=== PATIENT | female | born 1975 | race Hispanic/Latino ===

== ENCOUNTER 2018-06-26 17:37 | Emergency (ER) | payer MEDICARE, OTHER ==
[~2018-06-26] VITALS: Ht 154.9 cm; Wt 99.8 kg
[~2018-06-26 17:37] MED LIST: ADDERALL 20 MG20 MG PO; AMBIEN10 MG PO; CELEXA20 MG PO; DOXEPIN PO; FIORINAL 50-321 EACH PO; GABAPENTIN300 MG PO; LEVOTHYROXINE50 MCG PO; MS CONTIN15 MG PO; NORVASC10 MG PO; PLAQUENIL200 MG PO; SEROQUEL25 MG PO; SUCRALFATE1 GM PO; XANAX1 MG PO; Z.0.KLONOPIN1 MG PO; Z.0.TRILEPTAL300 MG PO; Z.0.WELLBUTRIN XL300 PO; xeljanz PO
--- OUTSIDE RECORDS SUMMARY | 2018-06-26 17:40 | XMS REPORT ---
[facility] Address Unknown Phone Unavailable Care Team Providers Care Casting Wheel Operator Name Role Phone Unavailable Unavailable Payers Payer Name Policy Type Policy Number Effective Date Expiration Date Problems This patient has no known problems. Allergies, Adverse Reactions, Alerts Allergy Name Allergy Type Status Severity Reaction(s) Onset Date Inactive Date Treating Clinician Comments Cephalexin Monohydrate DA Active U 2018-04-06 00:00:00 Penicillins DA Active U 2018-04-06 00:00:00 codeine DA Active U 2018-04-06 00:00:00 Cephalexin Monohydrate DA Active U 2018-03-08 00:00:00 Penicillins DA Active U 2018-03-08 00:00:00 codeine DA Active U 2018-03-08 00:00:00 codeine DA Active U 2017-11-01 00:00:00 Cephalexin Monohydrate DA Active U 2017-10-21 00:00:00 Penicillins DA Active U 2017-10-21 00:00:00 Medications This patient has no known medications. Encounters Start Date/Time End Date/Time Encounter Type Admission Type Attending [facility] Facility Care Department Encounter ID 2017-12-11 05:03:00 Inpatient [facility] [id number] 2018-01-10 00:00:00 2018-01-10 00:00:00 Outpatient [facility] [id number] 2017-12-15 15:49:59 2017-12-15 15:49:59 Outpatient [facility] [id number] 2017-12-09 01:56:06 2017-12-09 01:56:06 Emergency [facility] [id number]
--- OUTSIDE RECORDS SUMMARY | 2018-06-26 17:40 | XMS REPORT | Clinical Summary ---
Author Author [facility] Organization [facility] Address Unknown Phone Unavailable Care Team Providers Care Outdoor Adventure Guides Name Role Phone PCP Unavailable Allergies Comments Active Allergy Reactions Severity Noted Date Codeine Hives, 04/05/2006 Itching, Swelling Cephalexin Monohydrate Hives, 04/05/2006 Itching, Swelling Penicillins 04/05/2006 Medications End Date Status Medication Sig Dispensed Refills Start Date Active ARIPiprazole (ABILIFY) 10 Take 1 tablet 30 tablet 0 mg tabletIndications: by mouth 8 Psychosis, unspecified every psychosis type morning. Active levothyroxine (SYNTHROID) Take 1 tablet 30 tablet 0 25 mcg tabletIndications: by mouth 8 Hypothyroidism, every morning unspecified type (before breakfast). 12/15/2017 Discontinued CIPROFLOXACIN 500 MG take 1 tablet 14 0 TABIndications: UTI (500 mg) by 8 (urinary tract infection) oral route every 12 hours Active Problems Problem Noted Date Pain in joint, ankle and foot 11/26/2007 Bipolar 2 disorder 05/12/2006 Chronic rhinitis 04/05/2006 Depression 04/05/2006 Mood disorder Psychosis Benzodiazepine abuse Opiate abuse, continuous Hypothyroidism Substance-induced disorder Encounters Care Team Description Date Type Specialty Yoko Mckeon 12/15/2017 Hospital Encounter Alona Malhotra MD Hypothyroidism, unspecified type (Primary Dx); Undifferentiated schizophrenia; Psychosis, unspecified psychosis type 12/11/2017 Hospital Psychiatry - Encounter 12/15/2017 Fozia Daigle MD Undifferentiated schizophrenia (Primary Dx); Mood disorder; Psychosis, unspecified psychosis type; Benzodiazepine abuse; Opiate abuse, continuous; Hypothyroidism, unspecified type; Substance-induced disorder 12/09/2017 Emergency Emergency Medicine - 12/11/2017 after 06/25/2017 Family History Medical History Relation Name Comments Diabetes Brother Cancer Father Hypertension Father Diabetes Maternal Grandmother Hypertension Maternal Grandmother Psychiatry Maternal Grandmother Cancer Mother Arthritis Paternal Grandmother Relation Name Status Comments Brother Father Alive Maternal Grandmother Mother Alive Paternal Grandmother Social History Date Tobacco Use Types Packs/Day Years Used Never Smoker Smokeless Tobacco: Never Used Tobacco Cessation: Counseling Given: No Alcohol Use Drinks/Week oz/Week Comments No former ETOH abuse Sex Assigned at Date Recorded Not on file Industry Job Start Date Occupation Not on file Not on file Not on file Travel End Travel History Travel Start No recent travel history available. Last Filed Vital Signs Time Taken Vital Sign Reading 12/15/2017 3:00 PM CDT Blood Pressure 118/82 12/15/2017 3:00 PM CDT Pulse 98 12/15/2017 3:00 PM CDT Temperature 36.7 C (98 F) 12/15/2017 3:00 PM CDT Respiratory Rate 18 12/08/2017 11:37 PM CDT Oxygen Saturation 97% - Inhaled Oxygen - Concentration 12/11/2017 5:10 AM CDT Weight 66.7 kg (147 lb) 12/11/2017 5:10 AM CDT Height 152.4 cm (5') 12/11/2017 5:10 AM CDT Body Mass Index 28.71 Plan of Treatment Health Maintenance Due Date Last Done Comments Cervical Cancer Scrn (3 1994 Yrs) Breast Cancer Scrn 2013 (Yearly) IMM Influenza Seasonal 03/26/2018Mar to August (>/=19 yrs) Procedures Comments Procedure Name Priority Date/Time Associated Diagnosis FOLIC ACID Routine 12/12/2017 6:00 AM CDT VITAMIN B12 Routine 12/12/2017 6:00 AM CDT URINE DRUG SCREEN Routine 12/11/2017 9:58 PM CDT CONSULT CLINICAL CASE STAT 12/10/2017 MANAGEMENT (RN/SW) 12:36 PM CDT CONSULT CLINICAL CASE STAT 12/10/2017 MANAGEMENT (RN/SW) 8:16 AM CDT VITAMIN B12 STAT 12/09/2017 8:08 AM CDT TSH STAT 12/09/2017 8:08 AM CDT FOLIC ACID STAT 12/09/2017 8:08 AM CDT COMPREHENSIVE METABOLIC STAT 12/09/2017 PANEL(DBIL NOT INCLUDED) 8:08 AM CDT CBC/DIFF STAT 12/09/2017 8:08 AM CDT after 06/25/2017 Results * FOLIC ACID (12/12/2017 6:00 AM CDT) Only the most recent of 2 results within the time period is included. Folic Acid 14.3 5.9 - 24.8 ng/mL BT MAIN-STATION 1 Specimen Blood Performing Organization Address [facility] Phone Number [facility] * VITAMIN B12 (12/12/2017 6:00 AM CDT) Only the most recent of 2 results within the time period is included. Vitamin B12 607 211 - 911 pg/mL BT MAIN-STATION 1 Specimen Blood Performing Organization Address [facility] Phone Number [facility] * URINE DRUG SCREEN (12/11/2017 9:58 PM CDT) Amphetamine Negative NEG BT MAIN-STATION Comment: 1 Calibrated Standard: D-Methamphetamine Positive if urine level >kp=8366 ng/mL Test performed on [id number] using EMIT Immunoassay Barbiturate Negative NEG BT MAIN-STATION Comment: 1 Calibrated Standard: Secobarbital Positive if urine level is >qd=629 ng/mL Test performed on [id number] using EMIT Immunoassay Benzodiazepine Negative NEG BT MAIN-STATION Comment: 1 Calibrated Standard: Lormethazepam Positive if urine level is >im=180 ng/mL Test performed on [id number] using EMIT Immunoassay Cannabinoid Negative NEG BT MAIN-STATION Comment: 1 Calibrated Standard: 11 nor-delta(9)-THC carboxylic a Positive if urine level >or=50 Test performed on [id number] using EMIT Immunoassay Cocaine Negative NEG BT MAIN-STATION Comment: 1 Calibrated Standard: Benzoylecgonine Positive if urine level >hl=612 Test performed on [id number] using EMIT Immunoassay Opiate, Ur Positive (A) NEG BT MAIN-STATION Comment: 1 Calibrated Standard: Morphine Positive if urine level >xi=487 Test performed on [id number] using EMIT Immunoassay PCP Negative NEG BT MAIN-STATION Comment: 1 Calibrated Standard: Phencyclidine Positive if urine level >or=25 Test performed on [id number] using EMIT Immunoassay Urine Toxicology Screen results are to be used only for Medical purposes. Specimen Urine Performing Organization Address [facility] Phone Number [facility] BT MAIN-STATION 1 * COMPREHENSIVE METABOLIC PANEL(DBIL NOT INCLUDED) (12/09/2017 8:08 AM CDT) Albumin 4.3 3.7 - 5.3 g/dL BT MAIN-STATION 1 Calcium 9.0 8.6 - 10.3 mg/dL BT MAIN-STATION 1 CO2 29 21 - 31 mmol/L BT MAIN-STATION 1 Chloride 102 98 - 107 mmol/L BT MAIN-STATION 1 Creatinine 0.60 0.6 - 1.2 mg/dL BT MAIN-STATION 1 Glucose 77 70 - 110 mg/dL BT MAIN-STATION 1 Alk Phos 61 34 - 104 U/L BT MAIN-STATION 1 Potassium 4.0 3.5 - 5.1 mmol/L BT MAIN-STATION 1 Sodium 137 136 - 145 mmol/L BT MAIN-STATION 1 ALT 20 7 - 52 U/L BT MAIN-STATION 1 AST 26 13 - 39 U/L BT MAIN-STATION 1 Urea Nitrogen 14 7 - 25 mg/dL BT MAIN-STATION 1 T Bilirubin 0.5 0.2 - 1.2 mg/dL BT MAIN-STATION 1 T Protein 7.2 6.0 - 8.3 g/dL BT MAIN-STATION 1 GFR, Estimated >60 mL/min/1.73 m2 BT MAIN-STATION 1 GFR, Estim, >60 mL/min/1.73 m2 BT MAIN-STATION Afr-Am 1 Anion Gap 6 BT MAIN-STATION 1 Specimen Blood Performing Organization Address [facility] Phone Number [facility] BT MAIN-STATION 1 * TSH (12/09/2017 8:08 AM CDT) TSH 0.49 (L) 0.57 - 3.74 uIU/mL BT MAIN-STATION 1 Specimen Blood Performing Organization Address [facility] Phone Number [facility] BT MAIN-STATION 1 * CBC/DIFF (12/09/2017 8:08 AM CDT) WBC 5.2 4.5 - 11.0 K/uL BT MAIN-STATION 2 RBC 3.90 (L) 4.20 - 5.40 M/uL BT MAIN-STATION 2 Hemoglobin 12.1 12.0 - 16.0 g/dL BT MAIN-STATION 2 Hematocrit 37.2 37.0 - 47.0 % BT MAIN-STATION 2 MCV 95 (H) 82 - 92 fL BT MAIN-STATION 2 MCH 31.0 27.0 - 32.0 pg BT MAIN-STATION 2 MCHC 32.5 32.0 - 36.0 g/dL BT MAIN-STATION 2 RDW 48.9 (H) 36.4 - 46.3 fL BT MAIN-STATION 2 Platelet 121 (L) 150 - 400 K/uL BT MAIN-STATION 2 Mean Platelet 10.9 9.4 - 12.4 fL BT MAIN-STATION Volume 2 Percent NRBC 0.0 BT MAIN-STATION 2 Absolute NRBC 0.00 BT MAIN-STATION 2 Neutrophil 64.1 34.0 - 70.0 % BT MAIN-STATION 2 Lymphocyte 27.0 20.0 - 50.0 % BT MAIN-STATION 2 Monocyte 5.8 5.0 - 12.0 % BT MAIN-STATION 2 Eosinophil 2.7 0.7 - 5.0 % BT MAIN-STATION 2 Basophil 0.2 0.1 - 1.2 % BT MAIN-STATION 2 Pct Immat Gran 0.2 0.0 - 0.5 BT MAIN-STATION 2 Neutrophil, Abs 3.30 1.56 - 6.13 K/uL BT MAIN-STATION 2 Lymphocyte, Abs 1.39 1.18 - 3.74 K/uL BT MAIN-STATION 2 Monocyte, Abs 0.30 0.24 - 0.36 K/uL BT MAIN-STATION 2 Eosinophil, Abs 0.14 0.04 - 0.36 K/uL BT MAIN-STATION 2 Basophil, Abs 0.01 0.01 - 0.08 K/uL BT MAIN-STATION 2 Absol Immat 0.01 0.00 - 0.03 K/uL BT MAIN-STATION Gran 2 Specimen Blood Performing Organization Address City/State/Zipcode Phone Number [facility] BT MAIN-STATION 2 after 06/25/2017 Insurance Type Payer Benefit Subscriber ID Effective Phone Address Plan / Dates Group [facility] xxxxxxxxx 2015- [phone] [address] MEDICARE Present [id number] [place] [address] [facility] xxxxxxxxx 2017- [phone] COMMUNITY Present [id number] [place] [address] [facility] xxxxxxxxx 2017- [phone] COMMUNITY Present [id number] PLAN [facility] [address] [facility] xxxxxxxxx 2017-P [phone] [address] MED[address]ARE BEHAVIOR resent [id number] [place], [place] CHOICE [address] Advance Directives For more information, please contact: [address] [address] Date Inactivated Comments Code Status Date Activated 12/15/2017 8:37 PM Full Code 12/11/2017 5:30 AM
[2018-06-26] MEDS ORDERED: SODIUM CHLORIDE 0.9% 1000ML 1,000 ML IV STA (20:14)
== END 2018-06-26 21:00 | disposition left against medical advice (07) ==
LOC: ER 17:37
DX: M54.9 Dorsalgia, unspecified (principal)

== ENCOUNTER 2018-06-30 12:40 | Emergency (ER) | payer MEDICARE ==
[~2018-06-30] VITALS: Ht 154.9 cm; Wt 81.6 kg
--- OUTSIDE RECORDS SUMMARY | 2018-06-30 12:42 | XMS REPORT | Clinical Summary ---
Author Author [facility] Organization [facility] Address Unknown Phone Unavailable Care Team Providers Care Manga Artist Name Role Phone PCP Unavailable Allergies Comments [...] 12/09/2017 Emergency Emergency Medicine - 12/11/2017 after 06/29/2017 Family History Medical History Relation Name Comments [...] CBC/DIFF STAT 12/09/2017 8:08 AM CDT after 06/29/2017 Results * FOLIC ACID (12/12/2017 6:00 AM CDT) Only the most recent of 2 results within the time period is included. Folic Acid 14.3 5.9 - 24.8 ng/mL BT MAIN-STATION 1 Specimen Blood Performing Organization Address [facility] Phone Number [facility] * VITAMIN B12 (12/12/2017 6:00 AM CDT) Only the most recent of 2 results within the time period is included. Vitamin B12 607 211 - 911 pg/mL BT MAIN-STATION 1 Specimen Blood Performing Organization Address [facility] Phone Number [facility] * URINE DRUG SCREEN (12/11/2017 9:58 PM CDT) Amphetamine Negative NEG BT MAIN-STATION Comment: 1 Calibrated Standard: D-Methamphetamine Positive if urine level >is=6359 ng/mL Test performed on [id number] using EMIT Immunoassay Barbiturate Negative NEG BT MAIN-STATION Comment: 1 Calibrated Standard: Secobarbital Positive if urine level is >jj=950 ng/mL Test performed on [id number] using EMIT Immunoassay Benzodiazepine Negative NEG BT MAIN-STATION Comment: 1 Calibrated Standard: Lormethazepam Positive if urine level is >dm=916 ng/mL Test performed on [id number] using EMIT Immunoassay Cannabinoid Negative NEG BT MAIN-STATION Comment: 1 Calibrated Standard: 11 nor-delta(9)-THC carboxylic a Positive if urine level >or=50 Test performed on [id number] using EMIT Immunoassay Cocaine Negative NEG BT MAIN-STATION Comment: 1 Calibrated Standard: Benzoylecgonine Positive if urine level >xs=035 Test performed on [id number] using EMIT Immunoassay Opiate, Ur Positive (A) NEG BT MAIN-STATION Comment: 1 Calibrated Standard: Morphine Positive if urine level >kp=247 Test performed on [id number] using EMIT Immunoassay PCP Negative NEG BT MAIN-STATION Comment: 1 Calibrated Standard: Phencyclidine Positive if urine level >or=25 Test performed on [id number] using EMIT Immunoassay Urine Toxicology Screen results are to be used only for Medical purposes. Specimen Urine Performing Organization Address [facility] Phone Number [facility] BT MAIN-STATION 1 * [...] MAIN-STATION 1 Specimen Blood Performing Organization Address [facility] Phone Number [facility] BT MAIN-STATION 1 * TSH (12/09/2017 8:08 AM CDT) TSH 0.49 (L) 0.57 - 3.74 uIU/mL BT MAIN-STATION 1 Specimen Blood Performing Organization Address [facility] Phone Number [facility] BT MAIN-STATION 1 [...] Phone Number [facility] BT MAIN-STATION 2 after 06/29/2017 Insurance Type Payer Benefit Subscriber ID Effective Phone Address Plan / Dates Group [facility] xxxxxxxxx 2015- [phone] [address] MEDICARE Present [id number] [place] [address] [facility] xxxxxxxxx 2017- [phone] COMMUNITY Present [id number] [place] [address] [facility] xxxxxxxxx 2017- [phone] COMMUNITY Present [id number] PLAN [facility] [address] [facility] xxxxxxxxx 2017-P [phone] [address] MEDICARE BEHAVIOR resent [phone] [place] [address] Advance Directives For more information, please contact: [address] [address] Date Inactivated Comments Code Status Date Activated 12/15/2017 8:37 PM Full Code 12/11/2017 5:30 AM
[2018-06-30 14:10] LABS: CLARITY,URINE HAZY (CLEAR); COLOR,URINE YELLOW (YELLOW); LEUKOCYTE ESTERASE ,URINE NEGATIVE (NEGATIVE); NITRITE,URINE NEGATIVE (NEGATIVE); PROTEIN,URINE DIPSTICK NEGATIVE (NEGATIVE)
[2018-06-30 14:11] LABS: BACTERIA,URINE FEW /HPF; BILIRUBIN,URINE NEGATIVE (NEGATIVE); EPITHELIAL CELLS,URINE FEW /LPF; KETONES,URINE NEGATIVE (NEGATIVE); RBC,URINE 0-5 /HPF (0-5); URINE UROBILINOGEN 0.2 mg/dL (0.2 - 1); WBC,URINE (MAN) 0-5 /HPF (0-5)
--- NOTE | 2018-06-30 14:23 | Diagnostic Imaging Report ---
Examination: CT head without contrast Clinical Indication: Headache. Technique: Transaxial noncontrast images from the skull base through the vertex were obtained. Sagittal and coronal reformatted images were done. Dose modulation, iterative reconstruction, and/or weight based adjustment of the mA/kV was utilized to reduce the radiation dose to as low as reasonably achievable. Comparison: Head CT dated 02/02/2015. Findings: Scalp: No abnormalities. Bones: Intact. No fractures. No blastic or lytic lesions. Brain sulci: Appropriate for patient's age. Ventricles: Normal in size and configuration. No hydrocephalus. Extra-axial space: No abnormalities. Parenchyma: No abnormal densities. No masses, hemorrhage, or acute or chronic cortical based vascular insults. Suprasellar region: No abnormalities. Craniocervical junction: The foramen magnum is patent. No Chiari one malformation. Impression: No new intracranial abnormality when compared to prior head CT dated 02/02/2015. Signed by: Dr. Ana Hylton M.D. on 06/30/2018 2:19 PM
--- NOTE | 2018-06-30 14:25 | Diagnostic Imaging Report ---
Examination: CT CERVICAL SPINE WITHOUT CONTRAST HISTORY:Neck pain. COMPARISON:None. TECHNIQUE: Multidetector helical axial images were obtained without contrast from the foramen magnum to T1. Coronal and sagittal reformatted images were done. Bone and soft tissue windows were evaluated. Dose modulation, iterative reconstruction, and/or weight based adjustment of the mA/kV was utilized to reduce the radiation dose to as low as reasonably achievable. FINDINGS: Alignment:Normal alignment and lordosis. Vertebrae: Normal height and density. No acute fracture, infection or neoplasm. Disc space heights: Normal height. Caliber of spinal canal: Developmentally normal. Posterior fossa and craniocervical junction: Foramen magnum patent. No Chiari 1 malformation. Soft tissues: No abnormality. Degenerative changes: No disc bulge/ herniation or foraminal or canal stenosis. Visualized lung apices: No abnormalities. IMPRESSION: No abnormalities. Signed by: Dr. Ana Hylton M.D. on 06/30/2018 2:22 PM
--- NOTE | 2018-06-30 15:05 | NUR ---
Call placed to pt's mother Shelby Jiménez at , notified of pt's dc order & need for transport home.
== END 2018-06-30 15:40 | disposition home or self-care (01) ==
LOC: ER 12:40
DX: S00.83XA Contusion of other part of head, initial encounter (principal); M54.2 Cervicalgia; W01.0XXA Fall on same level from slipping, tripping and stumbling without subsequent striking against object, initial encounter; Y92.000 Kitchen of unspecified non-institutional (private) residence as the place of occurrence of the external cause
CPT/HCPCS: 70450; 72125; 81001; 99283